=== PATIENT | female | born 1995 ===

== ENCOUNTER 2016-12-13 21:59 | Emergency (ER) | payer MEDICAID ==
[2016-12-13 22:57] VITALS: BMI 41.3
[2016-12-13 23:17] LABS: RBC URINE 1 /hpf (0-3); URINE BACTERIA RARE (<OCC); URINE BILIRUBIN NEGATIVE (NEGATIVE); URINE BLOOD NEGATIVE (NEGATIVE); URINE CALCIUM OXALATE CRYSTALS FEW /hpf (<OCC); URINE COLOR Yellow (YELLOW); URINE GLUCOSE (UA) NORMAL (Normal); URINE KETONE TRACE mg/dL (NEGATIVE); URINE LEUKOCYTE ESTERASE NEG Leu/uL (Negative); URINE PROTEIN NEGATIVE (NEGATIVE); URINE UROBILINOGEN NORMAL mg/dL (0.2-1.0); WBC URINE 1 /hpf (0-5)
--- NOTE | 2017-03-04 14:00 | OBHP ---
Datetime: 12/13/2016 23:00 IP Adm Impression: , intrauterine ; No Active Labor IP Chief Complaint Other: vaginal pressure IP Admit Plan: Discharge home Admit Comment, IP Provider: chief complaint-vaginal pressuer and discharge HPI 21 y/o at 23.5 wga with c/o vaginal presure and notcing some discharge for 1 week Patient denies any active bleeding or loss of fluid.Patient denies nausea, vomiting, headache, lamine st pain, shortness of breath, numbness or tingling in hands and feet Prenata; course unbcomplicated as per patient PMH denies psh CSECTIONX2 obgyn h x; csectionx2 social hx denies tobacco,alcohol or illicit drug use Exam see exam section A/P Patient at 23.5 wga with c/o pelvic pressure.no active labor. -send ua -po fluids 12/14/16 12.10 am UA with trace ketoens; neg for nitrites and protein Patient state sthat she felt nauseaous and had an epsidoe fo vomiting.Her 2 children also have na usea and vomiting and currently in ER. Patient given phenergan suppository discussed possible gastroeneteritis .Advsied to increase po fluid intake return to er if you have persistent vomiting, diarrhea, abdominal pain or any other problems follow up in am with dr bond Pelvic Type - PN: Adequate Extremities - PN: Normal Abdomen - PN: Normal Back - PN: Normal Lungs - PN: Normal Heart - PN: Normal Neurologic - PN: Normal General - PN: Normal FHR - Baseline A Provider: 150s Contraction Comments Provider: none Comments, ACOG Physical Exam: pelvic vulva no lesions vagina no lesions; ohysiologic discharge cervix closed uterus gravid adnexa no adnexal tenderness IP Hx Assessment: The History has been Reviewed and is Current EGA AdmitDate IP: 23.5 Vital Signs Provider: Reviewed; Within Normal Limits IP Chief Complaint: Other Dilatation, Provider: 0 Effacement, Provider: thick Station, Provider: high Genitourinary Exam: Normal DTRs - PN: Normal
== END 2016-12-14 00:40 | disposition home or self-care (01) ==
LOC: C.EROB 21:59
DX: O26.892 Other specified pregnancy related conditions, second trimester (principal); R10.2 Pelvic and perineal pain; N89.8 Other specified noninflammatory disorders of vagina; Z3A.23 23 weeks gestation of pregnancy

== ENCOUNTER 2017-03-04 14:08 | Emergency (ER) | payer MEDICAID ==
--- NOTE | 2017-03-04 20:11 | OBHP ---
Datetime: 03/04/2017 14:56 IP Adm Impression: , intrauterine ; No Active Labor IP Admit Plan: Observation/Evaluation; Discharge home Admit Comment, IP Provider: 21yo with IUP at 35wks and h/o Previous section X2, Presen ts with some episodes of lower abdominal discomfort but no definite contractions. She denies VB or LO F. Denies frequency and dysuria. TOCO- None, FHR- Category 1, Cx- closed/thichk/-3. Assessment: IUP at 35wks No Active labor. Plan: UA D/C home if UA- negative. Extremities - PN: Normal Abdomen - PN: Normal Back - PN: Normal Lungs - PN: Normal Heart - PN: Normal General - PN: Normal FHR - Baseline A Provider: 130 Membranes, Provider: Intact Contraction Comments Provider: None Comments, ACOG Physical Exam: ABD: Soft, NT, BS- present. Gestation - Est Wks by US: 35.0 EGA AdmitDate IP: 35.3 Vital Signs Provider: Reviewed IP Chief Complaint: Maternal discomfort NICHD Variability Prov Fetus A: Moderate 6-25bpm NICHD Accel Fetus A IP Provider: 15X15 FHR Category Provider Fetus A: Category I NICHD Decel Fetus A IP Provider: None Dilatation, Provider: 0 Effacement, Provider: 0 Station, Provider: -3 Genitourinary Exam: Normal
[2017-03-04 23:40] LABS: RBC URINE 3 /hpf (0-3); URINE BACTERIA RARE (<OCC); URINE BILIRUBIN NEGATIVE (NEGATIVE); URINE BLOOD NEGATIVE (NEGATIVE); URINE COLOR Yellow (YELLOW); URINE GLUCOSE (UA) NORMAL (Normal); URINE KETONE NEGATIVE (NEGATIVE); URINE LEUKOCYTE ESTERASE NEG Leu/uL (Negative); URINE PROTEIN 1+ mg/dL (NEGATIVE); URINE UROBILINOGEN NORMAL mg/dL (0.2-1.0); WBC URINE 3 /hpf (0-5)
== END 2017-03-04 16:31 | disposition home or self-care (01) ==
LOC: C.EROB 14:08
DX: O75.89 Other specified complications of labor and delivery (principal); Z3A.35 35 weeks gestation of pregnancy

== ENCOUNTER 2017-03-09 19:39 | Inpatient (IN) | payer MEDICAID ==
[2017-03-09 20:19] VITALS: BMI 47.8
[2017-03-09] MEDS ORDERED: Lactated Ringer's 1,000 ML IV ONE (20:19)
[2017-03-09 21:08] LABS: SQUAMOUS EPITHIAL 2 /hpf (0-5); URINE BACTERIA RARE (<OCC); URINE BILIRUBIN NEGATIVE (NEGATIVE); URINE BLOOD NEGATIVE (NEGATIVE); URINE CLARITY Clear (Clear); URINE COLOR Yellow (YELLOW); URINE GLUCOSE (UA) NORMAL (Normal); URINE LEUKOCYTE ESTERASE NEG Leu/uL (Negative); URINE NITRATE NEGATIVE (NEGATIVE); URINE PROTEIN 1+ mg/dL (NEGATIVE); URINE UROBILINOGEN NORMAL mg/dL (0.2-1.0)
[2017-03-09 21:11] LABS: HEMOGLOBIN 9.9 g/dL (11.0-16.0); MEAN CELL VOLUME 82.7 fL (81.0-99.0); MEAN CORPUSCULAR HEMOGLOBIN 26.6 pg (27.0-31.0); MEAN CORPUSCULAR HGB CONC 32.1 g/dL (33.0-37.0); MEAN PLATELET VOLUME 9.5 fL (7.2-11.7); RBC 3.74 Mil/uL (3.80-5.20); RED CELL DISTRIBUTION WIDTH 15.6 % (11.5-14.5); WHITE BLOOD COUNT 12.2 K/uL (4.8-10.8)
[2017-03-09 21:24] LABS: GFR AFRICAN-AMERICAN > 60; GFR NON-AFRICAN AMERICAN > 60
[2017-03-09 21:25] LABS: ALT/SGPT 16 U/L (9-52); AST/SGOT 17 U/L (14-36); BLOOD UREA NITROGEN 8 mg/dL (7-17); CALCIUM 8.9 mg/dl (8.6-10.4)
[2017-03-09] MEDS ORDERED: Sodium Citrate/Citric Acid 15 ml Sol PO ONE (22:15)
[2017-03-09] MEDS ORDERED: Lactated Ringer's 1,000 ML IV SCH (22:15)
[2017-03-09] MEDS ORDERED: cefOXitin IV 2 gm in Dextrose 2 GM/50 ML BAG IVPB ONE ×2 (22:15→22:40)
[2017-03-09] MEDS ORDERED: Sodium Citrate/Citric Acid 15 ml Sol ONE ×2 (22:40→22:42)
[2017-03-10] MEDS ORDERED: Morphine 1 mg/ml preservative-free Inj(Duramorph) ONE (00:10)
[2017-03-10] MEDS ORDERED: Lidocaine 2% Inj (20ml) ONE (00:27)
[2017-03-10] MEDS ORDERED: Oxytocin 20 units in LR 2,000 ML IV ONE (00:55)
[2017-03-10] MEDS ORDERED: Oxytocin 10 Units/ml Inj ONE (00:55)
[2017-03-10] MEDS ORDERED: Oxycodone/Acetaminophen 5/325 mg Tab PO PRN (02:11)
--- NOTE | 2017-03-10 02:28 | PCM.SURG1 ---
Surgeon's Initial Post Op Note - Surgeon's Notes Surgeon: Lea Murguia MD Commercial Review Appraiser: Christiano Alvarenga MD Type of Anesthesia: Spinal Anesthesia Administered By: Gerardo Kaye DO Pre-Operative Diagnosis: 36 weeks 6 days, Previous section x 2, abdominal pain Operative Findings: Live male infant, JEFFERSON position; weight 4lb 15oz, Apgars 9/ 9. Cord pH. Normal uterus; normal ovaries and fallopian tubes, bilaterally. Post-Operative Diagnosis: Same Operation Performed: repeat transverse lower uterine segment section Specimen/Specimens Removed: Placenta Estimated Blood Loss: EBL {In ML}: 800 (U.O. 500 mL; 1400 mL LR) Blood Products Given: N/A Drains Used: No Drains Post-Op Condition: Good Date of Surgery/Procedure: 03/10/17 Time of Surgery/Procedure: 02:00 Addendum Addendum: 03/10/17 02:31 Dr. Christiano Alvarenga was present for the entire procedure, from beginning to end. His presence was necessary for: 1) adequate visualization of the operative field at all times; 2) the safe and atraumatic delivery of the ; 3) assuring hemostasis
--- NOTE | 2017-03-10 02:45 | OBDS ---
DELIVERY PERSONNEL Delivery Doctor: Adarsh Murguia MD Scrub Nurse: DILIP Signal Fitter: Sunny Emanuel RN Anesthesiologist: XIANG MATERNAL INFORMATION Delivery Anesthesia: Spinal Medications in Delivery: NONE Estimated Blood Loss (ml): 800 Placenta Cultured: No Maternal Complications: None RN Comments: PT WAS ADMITTED C/O LOWER ABDOMINAL PAIN AND PRESSURE Hx of previous c/s x2 .c/s was ca lled by DR MURGUIA.LIVE BABY BOY WAS DELIVERED VIA C/S 9/9 . BABY TO NURSERY Provider Comments: Unremarkable repeat LTCS at 36w 6d, live male , JEFFERSON, weight 4lb 15oz, s 9/9; cord pH 7.31. Manual delivery of placenta - grossly normal, 3 vessel cord. Routine closure. He mostasis assured. Patient tolerated procedure well. To LDR#3 for recovery in stable condition. LABOR SUMMARY EDC: 03/31/2017 00:00 No. Babies in Womb: 1 Attempted: No LABOR INFORMATION Reason for Induction: Not Applicable Oxytocin: N/A Group B Beta Strep: UNKNOWN Antibiotics # of Doses: 1 Antibiotics Time of Last Dose: 23:45 Steroids Given: None Reason Steroids Not Administered: Not Applicable Other Reason Not Administered: 36+6 WEEKS MEMBRANES Membranes Rupture Method: Artificial Rupture of Membranes: 03/10/2017 00:54 Length of Rupture (hrs): 0.00 Amniotic Fluid Color: Clear Amniotic Fluid Amount: Moderate STAGES OF LABOR Stage 3 hrs: 0 Stage 3 min: 2 VAGINAL DELIVERY Episiotomy: None Laceration Extension: N/A Laceration Type: None CSECTION DELIVERY Primary Indication: Abdominal pain CSection Urgency: Emergency CSection Incidence: Repeat Labor: N/A Elective: Elective CSection Incision: Lower Uterine Transverse Uterine Closure: Double-layer closure BABY A INFORMATION Delivery Date/Time: 03/10/2017 00:54 Method of Delivery: Born in Route : No : N/A Forceps: N/A Vacuum Extraction: N/A Shoulder Dystocia : Yes SHOULDER DYSTOCIA BABY A Infant Delivery Date/Time: 03/10/2017 00:54 PRESENTATION/POSITION BABY A Presentation: Cephalic Cephalic Presentation: Vertex Breech Presentation: N/A PLACENTA INFORMATION BABY A Placenta Delivery Time : 03/10/2017 00:56 Placenta Method of Delivery: Manual Removal Placenta Status: Delivered SCORES BABY A Heart Rate 1 min: >100 bpm Resp Effort 1 min: Good Cry Reflex Irritability 1 min: Cough or Sneeze or Pulls Away Muscle Tone 1 min: Active Motion Color 1 min: Body [place], Extremities Blue SCORE 1 MIN: 9 Heart Rate 5 min: >100 bpm Resp Effort 5 min: Good Cry Reflex Irritability 5 min: Cough or Sneeze or Pulls Away Muscle Tone 5 min: Active Motion Color 5 min: Body [place], Extremities Blue SCORE 5 MIN: 9 INFORMATION BABY A Gestational Age at Delivery: 37.0 Gestational Status: Infant Outcome : Liveborn Infant Condition : Stable Infant Sex: Male IDENTIFICATION/MEDS BABY A ID Band Number: [id number] ID Band Location: Left Leg; Left Arm Sensor Applied: Yes Sensor Number: [id number] Sensor Location : Cord Clamp Vitamin K Given : Not Given Erythromycin Given: Not Given WEIGHT/LENGTH BABY A Infant Birthweight (gms): 2245 Weight (lb): 4 Infant Weight (oz): 15 Infant Length Inches: 18.00 Length cms: 45.7 CORD INFORMATION BABY A No. Cord Vessels: 3 Nuchal Cord : N/A Cord Blood Taken: Yes Infant Suction: None ASSESSMENT BABY A Complications: None Physical Findings at Delivery: Within Normal Limits Respirations: Appears Normal Roof Truss Machine Tender/ALS Called : Yes Care By: DR MELGOZA/SHAHANA CARLISLE Transferred To: Nursery
--- NOTE | 2017-03-10 03:14 | OBADHP ---
Datetime: 03/09/2017 20:14 IP Chief Complaint Other: Lower abdominal pain; previous C/S x 2 Admit Comment, IP Provider: 21 y.o. , LMP unsure, EZEKIEL 03/31/17, per patient, EGA 36w 6d c/o poss ible ROM 03/08/17 at 22 hours. Was seen at visit; was examined. Worsening Ctx 03/09/17 1600 hour s, pain scale 10/10 "when they come" described as "he's pressing down". Denies LOF, VB. car e: [facility], denies issues. Patient is Rh (-); patient states did not receive rho augusta. Limited access to labs - all negative. P Ob: C/S x 2: both males, 2013, 9 1/2 lb; 2016, 8 lb; both at [facility]3]; Denies DM, HTN Spont ab x 1, 2013, 6 weeks, no D_C. 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 Denies STIs PMH: gastritis; sinus bradycardia, 2015. Has not seen cardiology PSH: C/S x 2 Allergy: tramadol = rash Meds: stopped PNV at 5 months gestation "it just wasn't happening for me" Soc Hx: (+) tobacco use 4 cig/day - prior to . None now. Denies illicit drug or EtOH use. With FOB x 7 years Fam Hx: Mother alive 53 - nomed. Father alive 70 - HTN. No known fam h/o cancer Assessment: 21 yo P2012, 36w 6d prevous C/S x 2, - no ROM; uterine ctx not being detected by toco; however, patient visibly uncomfortable. Categroy 1 tracing. D/W, IV hydration, obtain U/A (R/O UTI) a dn giovany reassess in 1-2 hours. Patient expresed an understanding and agrees. Plan: 1) IVFs 2) U/A Addendum: 2345 hour Patient reports abdominal pain is still the same. In light of h/o prev C/S x 2, abdominal pain, ca nnot R/O uterine rupture. To [facility] end, patient counseled for delivery, with thee alice marie theat the may experience respiratory issues and need to be transferred to a Level III insti tution if necessary. Patient expresed an understanding; her questions were answered. All consents wer e signed, dated, witnessed and placed n chart. Patient clinically stable. Plan: 1) Admit 2) NPO 3) Admission labs 4) Pre-op labs 5) Continuous EFM 6) Mefoxin, occupational health physiotherapist to O.R. 7) Notify anesthesai 8) notify peds. 9) cota 10) mefoxin Pelvic Type - PN: Adequate Extremities - PN: Normal Abdomen - PN: Abnormal Back - PN: Normal Breast - PN: Not Done Lungs - PN: Normal Heart - PN: Normal Thyroid - PN: Not Done Neurologic - PN: Normal HEENT - PN: Normal General - PN: Normal Presentation-Admit: Vertex FHR - Baseline A Provider: 140 Contraction Comments Provider: None registering Comments, ACOG Physical Exam: Skin: warm, dry Abdomen: morbidly obese; Soft; (+) uerine tenderness to palpation when patient visibly uncomfortab le with intermittent bouts of pain. Fundal height 40 cm Perineum: dry Spec: no pooling; nitrazine (-) Bedside sono: left huseyin-fundal placenta; cephalic; JERROD 16.25 cm; (+) FM, (+) tone, (+) FBM All other systems reviewed and re negative Gestation - Est Wks by US: 36w 6d IP Chief Complaint: Suspected ruptured membranes NICHD Variability Prov Fetus A: Moderate 6-25bpm NICHD Accel Fetus A IP Provider: 10X10 FHR Category Provider Fetus A: Category I NICHD Decel Fetus A IP Provider: None Dilatation, Provider: 0 Effacement, Provider: 30 Station, Provider: -3 Genitourinary Exam: Normal DTRs - PN: Not Done EGA AdmitDate IP: 36.6 IP Adm Impression: , intrauterine ; Intact Membranes IP Admit Plan: Admit to unit; Initiate Section protocol Datetime: 03/04/2017 14:56 Membranes, Provider: Intact Vital Signs Provider: Reviewed Datetime: 12/13/2016 23:00 IP Hx Assessment: The History has been Reviewed and is Current
[2017-03-10 04:22] VITALS: O2SAT 98
[2017-03-10] MEDS ORDERED: DiphenhydrAMINE 50 mg/ml Inj IVP STA (04:42)
[2017-03-10] MEDS ORDERED: DiphenhydrAMINE 50 mg/ml Inj ONE (04:55)
[2017-03-10] MEDS: Simethicone 80 mg Chewtab PO SCH ×4 (09:20→22:47)
[2017-03-10] MEDS: Oxycodone/Acetaminophen 5/325 mg Tab PO PRN (09:21)
[2017-03-10] MEDS: Prenatal Multivit/Folic Acid/Iron Tab PO SCH (09:24)
[2017-03-10 11:42] LABS: HEMOGLOBIN 8.8 g/dL (11.0-16.0); MEAN CELL VOLUME 82.4 fL (81.0-99.0); MEAN CORPUSCULAR HEMOGLOBIN 26.9 pg (27.0-31.0); MEAN CORPUSCULAR HGB CONC 32.7 g/dL (33.0-37.0); MEAN PLATELET VOLUME 9.2 fL (7.2-11.7); RBC 3.27 Mil/uL (3.80-5.20); RED CELL DISTRIBUTION WIDTH 15.4 % (11.5-14.5); WHITE BLOOD COUNT 11.7 K/uL (4.8-10.8)
--- NOTE | 2017-03-10 14:24 | OBPPN ---
Datetime: 03/10/2017 07:29 PP Pain Prov: Within normal limits PP Nausea Prov: Denies PP Flatus Prov: No PP BM Prov: No PP Breasts Prov: Normal PP Heart Prov: Normal PP Lungs Prov: Normal PP Abdomen/Uterus Prov: Normal PP Lochia Prov: Normal PP Vulva/Perineum Prov: Normal PP CVA Tenderness Prov: Normal PP Extremities Prov: Normal PP C/S Incision Prov: Normal PP Progress Prov: Not Applicable PP Impression Prov: Normal progression PP Plan Prov: Continue present management PP Progress Note Prov: Pt seen and examined, not yet out of bed, ambuating. pt reports pain well con trolled. pt has cota cathether in place, just woke up, has not had any thing to eat or drink, not am bulating, not passing flatus, minmal vaginal bleeding. Pt denies any fevers, chills, nause, vomiting , CP, SOB VSS PE: See above A/P s/p PLTCS POD #0 doing well -Pain Managment: percocet/Motrin -d/c cota later today -advance diet as tolerated -f/u AM labs -encouarge breast feeding -oob, encourage ambuation IP PP Procedures: None Vital Signs Provider PP: Reviewed
[2017-03-11] MEDS: Oxycodone/Acetaminophen 5/325 mg Tab PO PRN (00:33)
[2017-03-11 08:13] VITALS: BP 134/85; PULSE 70; RESP 18; TEMP 99.2
[2017-03-11] MEDS: Simethicone 80 mg Chewtab PO SCH ×2 (09:29→13:09)
[2017-03-11] MEDS: Prenatal Multivit/Folic Acid/Iron Tab PO SCH (09:32)
--- NOTE | 2017-03-11 11:21 | OBPPN ---
Datetime: 03/11/2017 11:09 PP Pain Prov: Within normal limits PP Nausea Prov: Denies PP Flatus Prov: Yes PP Heart Prov: Normal PP Lungs Prov: Normal PP Abdomen/Uterus Prov: Normal PP CVA Tenderness Prov: Normal PP Extremities Prov: Normal PP C/S Incision Prov: Normal PP Progress Prov: Normal PP Impression Prov: Normal progression PP Plan Prov: Discharge PP Progress Note Prov: S-patient reports that her pain is well controlled.She denies nausea, vomitin g, headache, chest pain, shortness of breath, numbness or tingling in hands and feet.Patient requesti ng to go home today. O-VSS afebrile Fundus firm and below umbilicus Extremities no calf tenderness A/P Patient s/p csection pod 1.Patient requesting to go home today -patient clinically stable.will discharge later this afternoon -follow up in clinic in 1 week after insicion check anhd staple rmeoval -patient given infection precautions Vital Signs Provider PP: Reviewed; Within Normal Limits
--- NOTE | 2017-03-11 11:21 | OBDCSUM ---
Datetime: 03/11/2017 08:55 Discharged to, Provider: Home Follow up at, Provider: [facility] Disch Instr Activity: Normal activity Disch Instr Diet: Regular Discharge Instructions, Provider: Routine instructions given Discharge Diagnosis, Provider: Delivery Discharge Time: 03/11/2017 11:19 Follow up in weeks, Provider: 03-15-17 Disch Referrals: None Disch Activity Restrictions: No lifting; Minimize stair-climbing; No sexual activity; Nothing in vag kamila - [place], tampons, douche Discharge Comment, Provider: go toe r if you have fever, severe pain, heavy bleeding, pain or redbne ss from incison, pain or redness in calf msucels or any other problems Discharge Diagnosis Prov Other: repeat scection at 36 weeks and 6 days
--- NOTE | 2017-03-18 10:54 | OP ---
DATE OF SURGERY: 03/10/2017 SURGEON: Lea Murguia MD. OIL DELIVERER: Christiano Alvarenga MD. ANESTHESIOLOGIST: Gerardo Kaye DO. ANESTHESIA TYPE: Spinal. PREOPERATIVE DIAGNOSES: 36 weeks 6 days gestation, previous Caesarean section x2, abdominal pain, rule out uterine rupture. OPERATION PERFORMED: Repeat transverse lower uterine segment Caesarean section. OPERATIVE FINDINGS: Live male , left occiput anterior position. Apgars 9 and 9 at 1 and 5 minutes respectively. Weight is 4 pounds 15 ounces. Cord pH was 7.30. Normal uterus; and normal ovaries and fallopian tubes bilaterally. ESTIMATED BLOOD LOSS: 800 mL. URINE OUTPUT: 500 mL of clear urine. IV FLUIDS: 1400 mL of lactated Ringer's. COMPLICATIONS: None. SPECIMEN: None. PROCEDURE: The patient was taken to the operating room after having obtained informed consent for the anticipated procedure. This included a discussion of possible complications including but not limited to infection requiring antibiotics, hemorrhage requiring blood transfusion, repair of any damage to internal organs, possible Caesarean hysterectomy. Consents were signed, dated, witnessed and placed in the chart. The patient was then escorted to the operating room where on the operating table in a sitting position, spinal anesthesia was administered. She was then repositioned to the supine position and the abdomen was prepped and draped in the usual sterile fashion. After assuring an adequate level of anesthesia, using a scalpel, a Pfannenstiel incision was made through one of her 2 previous scars. The incision was carried down through the subcutaneous tissue using the Bovie electrocautery. The fascia was identified; it was nicked in the midline and the incision was extended laterally also using the Bovie electrocautery. The rectus muscle was identified and it was by a sharp dissection in the midline. The peritoneum was identified and it was also entered by a sharp dissection. The vesicouterine reflection was identified and the bladder flap was created. The lower uterine segment was extremely thin and a transverse incision was made. Amniotomy was performed and a moderate amount of clear amniotic fluid was obtained. Atraumatic delivery of the with the findings as above then ensued. Once on the operative field, the infant's mouth and nose were bulb suctioned as the umbilical cord was doubly clamped and cut. The was then handed off the operative field to the medical concierge in attendance. A segment of the umbilical cord was obtained for cord pH; results as above. Manual removal of the placenta then ensued, it was grossly intact with 3 vessels present in the cord. The uterus was then exteriorized for closure. This was done in 2 layers using 0 Vicryl suture. The first layer with a running interlocking fashion and second layer was a horizontal imbricating fashion. Additional sutures using of 0 Biosyn were placed to ensure hemostasis. Once this was assured, attention was directed to the posterior aspect of the uterus - findings as described above. Copious irrigation was performed of the abdominal cavity. We turned our attention to the anterior aspect of the uterus. A layer of Surgicel was placed along the uterine incision and the bladder flap was re-approximated using 2-0 chromic in a running fashion. The uterus was then returned to the abdominal cavity. The paracolic gutters were cleared of all debris. The parietal peritoneum was then re-approximated using 2-0 chromic in a running fashion. The muscles were re-approximated using 2-0 chromic in a running fashion. The fascia was re-approximated using 1-0 Vicryl in a running fashion in 2 halves. The subcutaneous tissue was re-approximated using 0 plain catgut in a running fashion, and the skin was re-approximated using surgical clips. A pressure dressing was applied. Bimanual exploration was performed and uterus was expressed of its clots. It was noted to be contracted and was firm. The patient tolerated the procedure well; she was transferred to [facility] for recovery. had been transferred to the [facility]. Both patients were in stable condition. Dr. Alvarenga was present throughout the entire procedure from beginning to end. His presence was necessary for; 1. Adequate visualization of the operative gallegos at all time. 2. Safe and atraumatic delivery of the infant. 3. Assuring adequate hemostasis. Lea Murguia MD KATIE
== END 2017-03-11 13:35 | disposition home or self-care (01) | DRG 651 ==
LOC: C.EROB 19:39 → C.4D 21:59 → C.4M 03-10 05:15
PROVIDERS: ADMIT Obstetrics & Gynecology; ATTEND Obstetrics & Gynecology
PROC: 10D00Z1 Extraction of Products of Conception, Low, Open Approach (ICD-10-PCS; principal; 2017-03-10)
DX: O60.14X0 Preterm labor third trimester with preterm delivery third trimester, not applicable or unspecified (principal); O34.211 Maternal care for low transverse scar from previous cesarean delivery; Z3A.36 36 weeks gestation of pregnancy; Z37.0 Single live birth

== ENCOUNTER 2017-06-22 20:07 | Emergency (ER) | payer MEDICAID ==
[2017-06-22 20:08] VITALS: BMI 47.8
[2017-06-22] MEDS ORDERED: Sodium Chloride 0.9% 1,000 ML IV ONE (21:16)
[2017-06-22] MEDS ORDERED: Sodium Chloride 0.9% 1,000 ML ONE (21:37)
[2017-06-22 21:39] LABS: BASO # 0.1 K/uL (0.0-0.2); BASO % 0.7 % (0.0-2.0); EOS # 0.4 K/uL (0.0-0.7); EOS % 4.2 % (0.0-4.0); HEMATOCRIT 33.5 % (34.0-47.0); LYMPH # 2.6 K/uL (1.0-4.3); MEAN CELL VOLUME 82.1 fL (81.0-99.0); MEAN CORPUSCULAR HGB CONC 32.8 g/dL (33.0-37.0); MEAN PLATELET VOLUME 7.6 fL (7.2-11.7); MONO # 0.8 K/uL (0.0-0.8); MONO % 7.3 % (0.0-10.0); RED CELL DISTRIBUTION WIDTH 17.2 % (11.5-14.5); WHITE BLOOD COUNT 10.5 K/uL (4.8-10.8)
[2017-06-22 21:47] LABS: CHLORIDE 101 mmol/L (98-107); SODIUM 135 mmol/L (132-148)
[2017-06-22 21:48] LABS: POTASSIUM 3.8 mmol/L (3.6-5.2)
[2017-06-22 21:49] LABS: GFR AFRICAN-AMERICAN > 60
[2017-06-22 21:50] LABS: ALB/GLOB RATIO 1.2 (1.0-2.1); ALKALINE PHOSPHATASE 91 U/L (38-126); ALT/SGPT 41 U/L (9-52); AST/SGOT 22 U/L (14-36); BILIRUBIN,TOTAL 0.4 mg/dL (0.2-1.3); BLOOD UREA NITROGEN 15 mg/dL (7-17); CALCIUM 8.8 mg/dl (8.6-10.4); CARBON DIOXIDE 25 mmol/L (22-30); GLUCOSE,RANDOM 76 mg/dL (65-105); TOTAL PROTEIN 7.4 g/dL (6.3-8.3)
[2017-06-22 22:59] LABS: RBC URINE 2 /hpf (0-3); URINE BACTERIA RARE (<OCC); URINE BILIRUBIN NEGATIVE (NEGATIVE); URINE BLOOD NEGATIVE (NEGATIVE); URINE COLOR Yellow (YELLOW); URINE GLUCOSE (UA) NORMAL (Normal); URINE KETONE NEGATIVE (NEGATIVE); URINE LEUKOCYTE ESTERASE NEG Leu/uL (Negative); URINE PROTEIN NEGATIVE (NEGATIVE); URINE UROBILINOGEN NORMAL mg/dL (0.2-1.0); WBC URINE 1 /hpf (0-5)
[2017-06-22] MEDS ORDERED: Potassium Chloride 20 mEq ER Tab PO ONE (23:10)
--- NOTE | 2017-06-22 23:10 | C.PDOC ---
Time Seen by Provider: 06/22/17 21:02 Chief Complaint (Nursing): GI Problem History Per: Patient Onset/Duration Of Symptoms: Hrs (today) Current Symptoms Are (Timing): Still Present Severity: Moderate Location Of Pain/Discomfort: Epigastric Quality Of Discomfort: Unable To Describe, "Pain" Associated Symptoms: Nausea, Vomiting, Diarrhea Exacerbating Factors: Food Alleviating Factors: None Last Bowel Movement: Today Additional History Per: Prior Records Abnormal Vaginal Bleeding: No Past Medical History Reviewed: Historical Data, Nursing Documentation, Vital Signs Vital Signs: Last Vital Signs Temp 98.0 F 06/22/17 20:13 Pulse 92 H 06/22/17 20:13 Resp 18 06/22/17 20:13 BP 103/64 06/22/17 20:13 Pulse Ox 99 06/22/17 20:13 - Medical History PMH: Back Problems, Gastritis Surgical History: - [facility] Procedures CLOSURE SKIN & SUBCUTANEOUS NEC (06/11/13) EXTRACTION OF POC, LOW CERVICAL, OPEN APPROACH (03/09/17) INJECT RH IMMUNE GLOBUL (01/22/14) INJECT/INFUSE NEC (02/18/13) LOW CERVICAL (01/22/14) TETANUS TOXOID ADMINIST (06/11/13) Family History: States: Unknown Family Hx - Social History Hx Tobacco Use: Yes Hx Alcohol Use: No Hx Substance Use: No - Immunization History Hx Tetanus Toxoid Vaccination: Yes Hx Influenza Vaccination: No Hx Pneumococcal Vaccination: No Review Of Systems Except As Marked, All Systems Reviewed And Found Negative. Constitutional: Negative for: Fever, Weakness Cardiovascular: Negative for: Chest Pain Respiratory: Negative for: Shortness of Breath Gastrointestinal: Positive for: Nausea, Vomiting, Abdominal Pain, Diarrhea. Negative for: Melena, Hematochezia, Hematemesis Genitourinary: Negative for: Dysuria Musculoskeletal: Negative for: Neck Pain, Back Pain Skin: Negative for: Rash Neurological: Negative for: Weakness, Numbness Physical Exam - Physical Exam Appears: Non-toxic, No Acute Distress Skin: Normal Color, Warm, Dry, No Rash Head: Atraumatic, Normacephalic Eye(s): bilateral: Normal Inspection, PERRL, EOMI Neck: Normal ROM, Supple Cardiovascular: Rhythm Regular Respiratory: Normal Breath Sounds, No Accessory Muscle Use Gastrointestinal/Abdominal: Soft, Tenderness (epigastric), No Distention, No Guarding, No Rebound Back: No CVA Tenderness Extremity: Normal ROM Neurological/Psych: Oriented x3, Normal Motor, Normal Sensation ED Course And Treatment - Laboratory Results Result Diagrams: 06/22/17 21:34 06/22/17 21:34 Lab Interpretation: No Acute Changes Urine POC: Negative ECG: Interpreted By Me, Viewed By Me ECG Rhythm: Sinus Rhythm, Nonspecific Changes ECG Interpretation: No Acute Changes Rate From EC O2 Sat by Pulse Oximetry: 99 Pulse Ox Interpretation: Normal Progress - Interventions Interventions:: Observation, Intravenous fluid - Medications Administered Intravenous: Antiemetic, H-2 eneida - Data Reviewed Data Reviewed: Lab, EKG, Old records - Patient Status Patient status: Mostly improved - Continuity of Care Discussed patient case with:: Patient, ED Nurse - Patient Plan Patient Plan: Discharge, F/U with PCP Disposition Counseled Patient/Family Regarding: Studies Performed, Diagnosis, Need For Followup, Rx Given - Disposition Disposition: HOME/ ROUTINE Disposition Time: 23:10 Condition: IMPROVED Additional Instructions: Drink plenty of fluids. Follow up with your doctor for further evaluation and treatment. Return to the ER if you develop fever, not tolerating fluids, worsening of symptoms or if yo have any other concerns. Prescriptions: Famotidine [Pepcid] 20 mg PO BID #30 tab Metoclopramide [Reglan] 1 tab PO TID PRN #15 tab PRN Reason: Nausea/Vomiting Instructions: Gastroenteritis (ED) - Clinical Impression Clinical Impression: Nausea vomiting and diarrhea, Epigastric abdominal pain
[2017-06-23 00:13] VITALS: BP 122/78; PULSE 88; RESP 20; TEMP 98; O2SAT 98
--- NOTE | 2017-06-23 11:55 | CARD ---
APPROVED REPORT EKG Measurement Heart [id number] <Conclusion> Normal sinus rhythm with sinus arrhythmia Normal ECG
== END 2017-06-23 00:11 | disposition home or self-care (01) ==
LOC: C.ER 20:07
DX: R11.2 Nausea with vomiting, unspecified (principal); R19.7 Diarrhea, unspecified; R10.13 Epigastric pain; Z87.891 Personal history of nicotine dependence
CPT/HCPCS: 80053; 81001; 83690; 84703; 85025; 93005; 96374; 96375; 99284; J2765; J7040

== ENCOUNTER 2017-08-16 13:52 | Emergency (ER) | payer MEDICAID ==
[2017-08-16 13:53] VITALS: BMI 47.8
[2017-08-16] MEDS ORDERED: Sodium Chloride 0.9% 1,000 ML IV ONE (14:08)
--- NOTE | 2017-08-16 14:13 | C.PDOC ---
History Of Present Illness 22 year old female brought in by EMS to the ED c/o nausea, vomit, diarrhea that started yesterday. Patient is but she does not know how far along she is, states her LMP was on May. Patient is . Patient denies chills, back pain, dysuria, hematuria, vaginal bleeding, vaginal discharge. Time Seen by Provider: 08/16/17 13:57 Chief Complaint (Nursing): Abdominal Pain History Per: Patient, EMS History/Exam Limitations: no limitations Onset/Duration Of Symptoms: Hrs Current Symptoms Are (Timing): Still Present Severity: Mild Location Of Pain/Discomfort: Diffuse Radiation Of Pain To:: None Quality Of Discomfort: "Pain" Associated Symptoms: Nausea, Vomiting, Diarrhea. denies: Urinary Symptoms Alleviating Factors: None Recent travel outside of the [place]: No Additional History Per: Patient Abnormal Vaginal Bleeding: No Last Menstral Period: May : 5 Para: 3 Past Medical History Reviewed: Historical Data, Nursing Documentation, Vital Signs Vital Signs: Last Vital Signs Temp 98.5 F 08/16/17 13:59 Pulse 104 H 08/16/17 16:13 Resp 18 08/16/17 16:13 BP 116/79 08/16/17 16:13 Pulse Ox 99 08/16/17 16:51 - Medical History PMH: Back Problems, Gastritis Denies: Chronic Kidney Disease Surgical History: - [facility] Procedures CLOSURE SKIN & SUBCUTANEOUS NEC (06/11/13) EXTRACTION OF POC, LOW CERVICAL, OPEN APPROACH (03/09/17) INJECT RH IMMUNE GLOBUL (01/22/14) INJECT/INFUSE NEC (02/18/13) LOW CERVICAL (01/22/14) TETANUS TOXOID ADMINIST (06/11/13) Family History: States: Unknown Family Hx - Social History Hx Tobacco Use: Yes Hx Alcohol Use: No Hx Substance Use: No - Immunization History Hx Tetanus Toxoid Vaccination: Yes Hx Influenza Vaccination: No Hx Pneumococcal Vaccination: No Review Of Systems Constitutional: Negative for: Fever, Chills Cardiovascular: Negative for: Chest Pain Respiratory: Negative for: Cough, Shortness of Breath Gastrointestinal: Positive for: Nausea, Vomiting, Abdominal Pain, Diarrhea Genitourinary: Negative for: Dysuria, Hematuria, Vaginal Discharge, Vaginal Bleeding Musculoskeletal: Negative for: Back Pain Skin: Negative for: Rash Neurological: Negative for: Weakness, Numbness Physical Exam - Physical Exam Appears: Non-toxic, No Acute Distress Skin: Normal Color, Warm, Dry Head: Atraumatic, Normacephalic Nose: No Discharge Oral Mucosa: Moist Neck: Normal ROM, Supple Chest: Symmetrical Cardiovascular: Rhythm Regular, No Murmur Respiratory: Normal Breath Sounds, No Rales, No Rhonchi, No Wheezing Gastrointestinal/Abdominal: Soft, Tenderness (Mild diffuse), No Distention, No Rebound Extremity: Normal ROM, No Pedal Edema, No Calf Tenderness, No Swelling Neurological/Psych: Oriented x3, Normal Speech, Normal Cognition Gait: Steady ED Course And Treatment - Laboratory Results Result Diagrams: 08/16/17 14:25 08/16/17 14:25 Lab Interpretation: Normal Urine POC: Positive O2 Sat by Pulse Oximetry: 99 (On RA) Pulse Ox Interpretation: Normal - CT Scan/US US Transvaginal Other Rad Studies (CT/US): Interpreted By Me, Read By Radiologist, Radiology Report Reviewed CT/US Interpretation: Indication: Bleeding. Comparison: OB limited/biophysical profile performed 09/16/15. Technique: Real-time transabdominal pelvic ultrasound was performed. In addition a transvaginal pelvic ultrasound was necessary to better depict pelvic anatomy. Findings: Uterus measures approximately 8.7 x 5.9 x 6.7 cm. Retroverted. Cervix length measures approximately 3.5 cm. There is a single intrauterine fetus present. 3 mm yolk sac. The gestational sac measures 1.7 and is compatible with a gestational age of 6 weeks 0 days. The crown-rump length measures 0.3 cm and is compatible with a gestational age of 5 weeks 6 days. Small fluid is noted within the lower uterine segment endocervical cavity. There is heart motion which measured 105 BPM. The right ovary measures 3.3 x 1.8 x 2.7 cm. The left ovary measures 6.7 x 4.8 x 5.5 cm and contains 5.5 x 4.3 x 4.7 cm anechoic avascular lesion consistent with cyst. Blood flow was demonstrated to both ovaries. Small pelvic free fluid, cul-de-sac. Impression: Live single intrauterine with estimated gestational age 6 weeks 0 days by gestational sac calculation and 5 weeks 6 days by crown-rump length calculation. heart rate 105 bpm. 5.5 x 4.3 x 4.7 cm left ovarian anechoic avascular lesion consistent with cyst. Advise an anomaly screen at 16-18 weeks gestational age. Small fluid is noted within the lower uterine segment endocervical cavity. Small pelvic free fluid, cul-de-sac. Progress Note: Treated with IVF NSS, zofran and tylenol. On re-evaluation lungs clear, abdomen soft. In no distress. Case discussed with Dr Manrique and Dr Kenny regarding treatment with Rhogram Reassessment Condition: Improved Medical Decision Making Medical Decision Making: Impression: abdominal pain, nausea, vomit, diarrhea Plan: * Blood work * UA * IV fluids * Reglan 10 mg IVP * US Transvaginal Disposition Discussed With : Lea Murguia Comment: treat with Rhogram Doctor Will See Patient In The: Office Counseled Patient/Family Regarding: Studies Performed, Diagnosis, Need For Followup - Disposition Referrals: [facility] [Outside] [facility] [Outside] Disposition: HOME/ ROUTINE Disposition Time: 16:30 Condition: STABLE Additional Instructions: Follow up with your OB or the clinic for further evaluation Instructions: (ED), Gastroenteritis (ED) Forms: [facility] [facility] (Cuban) - POA Present On Arrival: None - Clinical Impression Clinical Impression: , Nausea vomiting and diarrhea, Rh negative status during - 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 - Scribe Statement The provider has reviewed the documentation as recorded by the Scribe Federico Clarke All medical record entries made by the Scribe were at my direction and personally dictated by me. I have reviewed the chart and agree that the record accurately reflects my personal performance of the history, physical exam, medical decision making, and the department course for this patient. I have also personally directed, reviewed, and agree with the discharge instructions and disposition.
[2017-08-16 14:31] LABS: BASO % 0.3 % (0.0-2.0); EOS # 0.1 K/uL (0.0-0.7); EOS % 1.3 % (0.0-4.0); HEMATOCRIT 38.6 % (34.0-47.0); LYMPH # 0.5 K/uL (1.0-4.3); LYMPH % 4.7 % (20.0-40.0); MEAN CELL VOLUME 82.3 fL (81.0-99.0); MEAN CORPUSCULAR HEMOGLOBIN 27.1 pg (27.0-31.0); MEAN CORPUSCULAR HGB CONC 32.9 g/dL (33.0-37.0); MEAN PLATELET VOLUME 7.9 fL (7.2-11.7); MONO # 0.7 K/uL (0.0-0.8); MONO % 6.1 % (0.0-10.0); PLATELET COUNT 313 K/uL (130-400); RED CELL DISTRIBUTION WIDTH 16.5 % (11.5-14.5)
[2017-08-16 15:03] LABS: ALB/GLOB RATIO 1.3 (1.0-2.1); ALKALINE PHOSPHATASE 92 U/L (38-126); ALT/SGPT 39 U/L (9-52); AST/SGOT 27 U/L (14-36); BILIRUBIN,TOTAL 0.6 mg/dL (0.2-1.3); BLOOD UREA NITROGEN 14 mg/dL (7-17); CALCIUM 8.4 mg/dl (8.6-10.4); CARBON DIOXIDE 26 mmol/L (22-30); CHLORIDE 103 mmol/L (98-107); GFR AFRICAN-AMERICAN > 60; GLUCOSE,RANDOM 99 mg/dL (65-105); SODIUM 137 mmol/L (132-148); TOTAL PROTEIN 7.1 g/dL (6.3-8.3)
[2017-08-16 15:05] LABS: EOSINOPHIL 3 % (0-4); NEUTROPHIL 85 % (50-75); TOTAL CELLS COUNTED 100
[2017-08-16 15:31] LABS: RBC URINE 3 /hpf (0-3); URINE BILIRUBIN NEGATIVE (NEGATIVE); URINE BLOOD NEGATIVE (NEGATIVE); URINE COLOR Yellow (YELLOW); URINE GLUCOSE (UA) NORMAL (Normal); URINE KETONE TRACE mg/dL (NEGATIVE); URINE LEUKOCYTE ESTERASE NEG Leu/uL (Negative); URINE PROTEIN NEGATIVE (NEGATIVE); URINE UROBILINOGEN NORMAL mg/dL (0.2-1.0); WBC URINE 1 /hpf (0-5)
--- NOTE | 2017-08-16 16:19 | US ---
Indication: Bleeding Comparison: OB limited/biophysical profile performed 09/16/15 Technique: Real-time transabdominal pelvic ultrasound was performed. In addition a transvaginal pelvic ultrasound was necessary to better depict pelvic anatomy. Findings: Uterus measures approximately 8.7 x 5.9 x 6.7 cm. Retroverted. Cervix length measures approximately 3.5 cm. There is a single intrauterine fetus present. 3 mm yolk sac. The gestational sac measures 1.7 and is compatible with a gestational age of 6 weeks 0 days. The crown-rump length measures 0.3 cm and is compatible with a gestational age of 5 weeks 6 days. Small fluid is noted within the lower uterine segment endocervical cavity. There is heart motion which measured 105 BPM. The right ovary measures 3.3 x 1.8 x 2.7 cm. The left ovary measures 6.7 x 4.8 x 5.5 cm and contains 5.5 x 4.3 x 4.7 cm anechoic avascular lesion consistent with cyst. Blood flow was demonstrated to both ovaries. Small pelvic free fluid, cul-de-sac. Impression: Live single intrauterine with estimated gestational age 6 weeks 0 days by gestational sac calculation and 5 weeks 6 days by crown-rump length calculation. heart rate 105 bpm. 5.5 x 4.3 x 4.7 cm left ovarian anechoic avascular lesion consistent with cyst. Advise an anomaly screen at 16-18 weeks gestational age Small fluid is noted within the lower uterine segment endocervical cavity. Small pelvic free fluid, cul-de-sac.
[2017-08-16 17:42] VITALS: RESP 16; TEMP 98
[2017-08-16 17:44] VITALS: BP 110/68; PULSE 78; O2SAT 98
== END 2017-08-16 17:43 | disposition home or self-care (01) ==
LOC: C.ER 13:52
DX: O21.8 Other vomiting complicating pregnancy (principal); O36.0910 Maternal care for other rhesus isoimmunization, first trimester, not applicable or unspecified; Z3A.01 Less than 8 weeks gestation of pregnancy
CPT/HCPCS: 76805; 76817; 80053; 81001; 83690; 84702; 84703; 85025; 86850; 86900; 96360; 99285; J2765; J2792; J7040

== ENCOUNTER 2018-01-26 11:53 | Emergency (ER) | payer MEDICAID ==
[2018-01-27 00:24] VITALS: BMI 45.8
[2018-01-27 00:49] LABS: SQUAMOUS EPITHIAL 10 /hpf (0-5); URINE BACTERIA RARE (<OCC); URINE BILIRUBIN NEGATIVE (NEGATIVE); URINE BLOOD NEGATIVE (NEGATIVE); URINE CLARITY Hazy (Clear); URINE COLOR Yellow (YELLOW); URINE GLUCOSE (UA) NORMAL (Normal); URINE LEUKOCYTE ESTERASE NEG Leu/uL (Negative); URINE PROTEIN NEGATIVE (NEGATIVE)
[2018-01-27] MEDS ORDERED: Lactated Ringer's 1,000 ML IV ONE (00:49)
[2018-01-27 01:03] LABS: HEMOGLOBIN 11.4 g/dL (11.0-16.0); MEAN CELL VOLUME 89.1 fL (81.0-99.0); MEAN CORPUSCULAR HEMOGLOBIN 30.8 pg (27.0-31.0); MEAN CORPUSCULAR HGB CONC 34.5 g/dL (33.0-37.0); MEAN PLATELET VOLUME 8.2 fL (7.2-11.7); RBC 3.69 Mil/uL (3.80-5.20); RED CELL DISTRIBUTION WIDTH 16.2 % (11.5-14.5); WHITE BLOOD COUNT 15.4 K/uL (4.8-10.8)
[2018-01-27 01:19] LABS: ALBUMIN 3.3 g/dL (3.5-5.0); ALT/SGPT 17 U/L (9-52); AST/SGOT 19 U/L (14-36); BLOOD UREA NITROGEN 8 mg/dL (7-17); CALCIUM 9.3 mg/dl (8.6-10.4); GFR AFRICAN-AMERICAN > 60; GFR NON-AFRICAN AMERICAN > 60; LIPASE 138 U/L (23-300)
--- NOTE | 2018-01-27 01:47 | OBHP ---
Datetime: 01/27/2018 00:50 IP Adm Impression: , intrauterine IP Chief Complaint Other: generalized abdominal pain, vomiting IP Adm Impression Other: Morbid obesity; prev C/S x 3; GDM IP Admit Plan: Observation/Evaluation Admit Comment, IP Provider: Patient received in LDR#4: FOB present 22 y.o. , LMP unsure, revised EZEKIEL 04/10/18 (by sono 08/16/17 at 6 w), EGA 29w 5d c/o genearl ized abdominal pain, 01/26/18, with 6 episodes of vomiting 01/26/18 - "everything I ate I threw up". De nies dizziness, lightheadeness. Denies sick contact; no recent travel; has not eaten any food cooked out of the house or leftovers. (+) FM; denies LOF, VB. care: [facility]. Per patient , is seen every 2 weeks "because of the high blood pressure". Also, diagnosed GDM 2 weeks ago. Fastin g F.S. 01/26 = 92. patient states FS> before coming to L_D = 120 (this, after 6 episodes of vomiting). States is on ASA, due to HTN; no on anti-hypertensive P OB: C/S x 3: all males, all at [facility] 2014, 9lb 8oz; 2016, 8lb; 2017 at 36w 6d, 4lb 12o z - infant was transferred to [facility]. No GDM in any of these pregnancies. No compicatio ns. 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 Denies h/o STIs, abnormal Pap, fibroids. PMH: 1) Bradycardia - diagnosed 2 years ago. last seen by cardiology 1 year ago. 2) Anemia "ever since I was little"; 3) Gastritis PSH: C/S x 3 Allergies: tramadol = itching all over body Soc Hx: denies tobacco, illicit drug or EtOH use. Lives with Fob and children; with FOB x 8 years. Unemployed Fam Hx: Mother 54 - no med issues. Father alive 70 -HTN. MGM - Breast CA;. P.E.: as above. Morbidly obese in NAD. Awake alert, oriented to time, person and place. FOB prese nt Assessment: 22 y.o. P2113, 29w 5d previous CS x 3. ?GDM/; ? HTN disorder on baby ASA. Catgory 1 t racing. BPs wnl. R/O acute gastroenteritis. R/O UTI. Clinically stable. Plan: 1) U/A 2) CBC, comp poanel 3) IVFs: LR x 1 litre 4) Zofran 4 mg IVP x 1 5) Observe Addendum: Glucose = 80; potassium 3.4; lipase 138 U/A: leuk esterase; ketones 1+ - patient received 1 ltire of fluids; no vomiting >=1+ hours. States abdominal discomfort is still present. D/W patient lab resutls: essnetially negative. Patieint advised to implement a modified ximena nd diet. To contact clinic today, Saturday 01/27 to see if quill fixer can be reached. Also, to drin k unsweetened coconut water. Lastly, GI distress may be related to post nasal drip: advised to take b enadryl or any allergy medications to see if this will help. Patient expresesd an understanding and a grees. Next appointment 02/02/18 Plan: 1) discharge home Pelvic Type - PN: Adequate Extremities - PN: Normal Abdomen - PN: Normal Back - PN: Normal Breast - PN: Not Done Lungs - PN: Normal Heart - PN: Normal Thyroid - PN: Not Done Neurologic - PN: Normal HEENT - PN: Normal General - PN: Normal Presentation-Admit: Vertex FHR - Baseline A Provider: 145 Contraction Comments Provider: none Comments, ACOG Physical Exam: Abdomen: Morbidly obese. soft. Generalized tenderness; no rebound tend erness. Healed Pfannenstiel scar All other systesms reviewed and are negative Gestation - Est Wks by US: 29w 5d Vital Signs Provider: Reviewed; Within Normal Limits NICHD Variability Prov Fetus A: Moderate 6-25bpm NICHD Accel Fetus A IP Provider: [id number] FHR Category Provider Fetus A: Category I NICHD Decel Fetus A IP Provider: None Dilatation, Provider: 0 Effacement, Provider: 0 Station, Provider: n/a Genitourinary Exam: Normal DTRs - PN: Normal
[2018-01-27 05:57] VITALS: BP 97/54; PULSE 79; RESP 18; TEMP 97.8
== END 2018-01-27 01:50 | disposition home or self-care (01) ==
LOC: C.EROB 11:53
DX: O26.893 Other specified pregnancy related conditions, third trimester (principal); Z3A.29 29 weeks gestation of pregnancy; R10.84 Generalized abdominal pain
CPT/HCPCS: 80053; 81001; 83690; 85027; 99283; J2405; J7120